=== PATIENT | male | born 2000 | race Two or more races ===

== ENCOUNTER 2024-10-17 01:59 | Emergency (ER) | payer MEDICAID, SELFPAY ==
[2024-10-17 02:03] VITALS: PULSE 102
[2024-10-17 02:16] VITALS: BP 108/77; PULSE 104; RESP 18; TEMP 36.4; O2SAT 98
[2024-10-17 02:40] VITALS: BMI 18.4
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
[2024-10-17 02:46] VITALS: BP 118/87; PULSE 105; RESP 18; TEMP 36.7; O2SAT 97
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
--- NOTE | 2024-10-17 02:51 | PC.NURSE ---
[employer] BEDSIDE SPEAKING TO PT,
[2024-10-17] MEDS: KETOROLAC INJ 60 MG/2 ML VIAL 15 MG IM (04:56)
[2024-10-17] MEDS: HYDROcodone/APAP 5/325 TABLET 1 TAB PO (04:56)
[2024-10-17 04:57] VITALS: BP 123/76; PULSE 104; RESP 12; TEMP 36.8; O2SAT 95
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
== END 2024-10-17 05:28 | disposition home or self-care (01) ==
PROVIDERS: Emergency Provider Emergency Medicine
DX: S02.2XXA Fracture of nasal bones, initial encounter for closed fracture (principal); S00.83XA Contusion of other part of head, initial encounter; S60.212A Contusion of left wrist, initial encounter; Y04.2XXA Assault by strike against or bumped into by another person, initial encounter; M54.2 Cervicalgia
CPT/HCPCS: 70450; 70486; 72125; 73110; 73130; 96372; 99284; J1885; A9270